=== PATIENT | male | born 1975 | race Caucasian/White ===

== ENCOUNTER 2020-01-08 16:02 | Emergency (ER) | payer MEDICAID ==
[~2020-01-08] VITALS: Ht 165.1 cm; Wt 68.9 kg
[2020-01-08 16:15] VITALS: Ht 165.1 cm; Wt 68.9 kg
[2020-01-08 17:15] VITALS: BP 133/83
== END 2020-01-08 17:15 | disposition home or self-care (01) ==
LOC: ED 16:02
DX: N49.2 Inflammatory disorders of scrotum (principal)